=== PATIENT | male | born 1985 | race Caucasian/White ===

== ENCOUNTER → 2019-07-15 | Day surgery (SDC) | payer OTHER ==
[~2019-07-15] MED LIST: NOHOMEMEDICATIONS; NORCO 5-325 TA1 EAC1 PO
--- NOTE | ~2019-07-15 | OP ---
[address] [address] OPERATIVE REPORT Name: JOHNNIE RILEY Room: [facility]#: [id number] Admission: 07/15/19 Attend Phys: Tyree Lopez II Discharge: Date of : 89 Report #: [id number] THIS REPORT FOR: //name// cc: Tyree Lopez II DO FAM - No family physician/PCP ~ THIS REPORT FOR: //name// CC: HEMANT physician/PCP Tyree Lopez DATE OF SERVICE: 07/15/2019 PREOPERATIVE DIAGNOSIS: Left olecranon fracture. POSTOPERATIVE DIAGNOSIS: Left olecranon fracture. PROCEDURE: Open reduction and internal fixation of left olecranon fracture. SURGEON: Tyree Lopez II, DO TOP LIFT COMPRESSOR: YANIV Sanchez ANESTHESIA: Per operative record. ESTIMATED BLOOD LOSS: Minimal. ANTIBIOTICS: Per operative record. DRAINS: None. COMPLICATIONS: None. CONDITION OF THE PATIENT: Stable to recovery room. BRIEF HISTORY: The patient was seen in the clinic prior to surgery, had waited several weeks for surgery or for evaluation by a physician due to not certain any fracture. The patient did have a lack of extension approximately 20 degrees on that visit and flexion to 90 degrees. The patient was warned that due to his waiting significant amount of time for his surgery, he may have continued lack of extension of his elbow despite surgical intervention. The patient was warned the risks of waiting and every attempt will be made to allow him to continue his range of motion and began early range of motion after fixation. DESCRIPTION OF PROCEDURE: The patient was taken to the operative suite and placed supine on the operating table, given appropriate anesthesia. The patient was placed in laterally on the pegboard after anesthesia [place] [address] OPERATIVE REPORT Name: JOHNNIE RILEY Room: [facility]#: [id number] Admission: 07/15/19 Attend Phys: Tyree Lopez II Discharge: Date of : 89 Report #: [id number] well-padded. His arm was then placed on a well-padded arm bolster and sterilely prepped and draped. Surgery began by evaluation with the C-arm showing a comminuted fracture of the left olecranon. Incision was then made over the olecranon carefully to place this incision off of midline more radially due to healing after plate fixation. The ulnar nerve was also evaluated and kept out of the way throughout the procedure. The fracture was freed up of adhesions and fibrous formations. These were manipulated back into near anatomic position. This was checked with C-arm in both AP and lateral directions. Two K-wires were then placed through the fracture site to secure this. The olecranon plate was then applied, checked with C-arm for appropriate alignment. The most proximal screw was then placed through the fracture into the distal segment of the ulna and compression was performed of the fracture site. The oblong hole was then utilized with compression screw technique at the most distal segment of the plate to compress the plate to the arm. Locking screws were then placed to the fracture fragments up to appropriate length taking care to violate any portion of the joint. Final images were taken with C-arm showing excellent anatomic alignment of the fracture and excellent plate position. Final irrigation was then performed of the wound. The subcuticular layer was then closed utilizing a 2-0 Vicryl, skin was closed with a 2-0 Vicryl and running Monocryl stitch. Dermabond was then applied as well as a sterile dressing with splint. Splint was placed in a slightly extended alignment due to the patient having lack of extension preoperatively. He was encouraged to take the splint off after one week to allow for early range of motion to help achieve his full range of motion and full extension. The patient and his family discussed this. The patient was transported to the recovery room in stable condition. Counts were correct throughout the procedure. By: [id number] Lopez II, DO /nt
== END | disposition home or self-care (01) ==
LOC: M.SUR 07:36
DX: S52.022A Displaced fracture of olecranon process without intraarticular extension of left ulna, initial encounter for closed fracture (principal); X58.XXXA Exposure to other specified factors, initial encounter; Y93.89 Activity, other specified; Y92.89 Other specified places as the place of occurrence of the external cause; Y99.8 Other external cause status